=== PATIENT | female | born 1980 | race Caucasian/White ===

== ENCOUNTER → 2017-06-05 | Outpatient (CLI) | payer OTHER ==
[~2017-06-05] MED LIST: ASCO500T12 PO; HYDR-3240 PO; MULT-257 PO; NORT50CA PO
== END | disposition home or self-care (01) ==
LOC: CFH 13:59
PROVIDERS: ATTEND Obstetrics & Gynecology Female Pelvic Medicine and Reconstructive Surgery
DX: N63.20 Unspecified lump in the left breast, unspecified quadrant (principal); N60.02 Solitary cyst of left breast; N80.9 Endometriosis, unspecified
CPT/HCPCS: 76641; 76830; G0204

== ENCOUNTER → 2017-07-17 | Outpatient (CLI) | payer OTHER | LOC: RAD 14:23 | PROVIDERS: ATTEND Obstetrics & Gynecology Female Pelvic Medicine and Reconstructive Surgery | DX: N83.292 Other ovarian cyst, left side (principal); N83.01 Follicular cyst of right ovary | CPT/HCPCS: 76830 ==